=== PATIENT | female | born 1990 | race Caucasian/White ===

== ENCOUNTER 2019-02-06 17:38 | Outpatient (REF) | payer SELFPAY | END 2019-02-06 17:58 | LOC: LBN 17:38 | PROVIDERS: PCP Nurse Practitioner Family; Visit Provider Nurse Practitioner Women's Health | DX: R30.0 Dysuria (principal) | CPT/HCPCS: 87086 ==

== ENCOUNTER 2022-04-19 14:08 | Outpatient (REF) | payer BC, SELFPAY | END 2022-04-19 14:09 | disposition home or self-care (01) | LOC: LBN 14:08 | PROVIDERS: PCP Nurse Practitioner Family; Visit Provider Nurse Practitioner Family | DX: J02.9 Acute pharyngitis, unspecified (principal) | CPT/HCPCS: 87070 ==

== ENCOUNTER 2023-10-29 09:08 | Outpatient (REF) | payer BC, SELFPAY ==
--- NOTE | 2023-10-29 08:30 | PAPFT_PTH ---
PATIENT: Nahomi Marshall LOC: [facility] U#:[id number] AGE/SX: 32/F ROOM: RE10/29/[address]: Tim Gates DNP : 1990 BED: DIS: 10/29/2023 SPEC #: [id number] RECD: 10/30/23 13:09 STATUS: SYDNIE REMatilda #: [id number] MABEL: 10/29/23 08:[address]: Tim Lucia DEPT: [facility] Cytology RECD BY: Justina Cruz Tissues: 1 - CX/ENDOCX FOR PAP SMEARS Procedures: PAP THIN PREP/[facility] Screening HPV DNA PROBE Comments: [id number]
== END 2023-10-29 09:09 | disposition home or self-care (01) ==
LOC: NCHCN 09:08
PROVIDERS: PCP Nurse Practitioner Family; Visit Provider Nurse Practitioner Family
DX: Z11.51 Encounter for screening for human papillomavirus (HPV) (principal); Z01.419 Encounter for gynecological examination (general) (routine) without abnormal findings
CPT/HCPCS: 88142; 87624